=== PATIENT | female | born 1975 ===

== ENCOUNTER 2018-02-18 11:27 | Outpatient (CLI) | payer OTHER | END 2018-02-18 15:42 | disposition home or self-care (01) | LOC: EKG 11:27 | DX: Z01.810 Encounter for preprocedural cardiovascular examination (principal) ==

== ENCOUNTER 2020-12-18 06:38 | Outpatient (CLI) | payer OTHER ==
[~2020-12-18 06:38] MED LIST: GABAPENTIN800 MG PO; IBUPROFEN800 MG PO; POLY119PG PO
== END 2020-12-18 15:00 | disposition home or self-care (01) ==
LOC: LAB 06:38
PROVIDERS: ATTEND Obstetrics & Gynecology
DX: Z20.818 Contact with and (suspected) exposure to other bacterial communicable diseases (principal); Z20.828 Contact with and (suspected) exposure to other viral communicable diseases